=== PATIENT | female | born 1995 | race Caucasian/White ===

== ENCOUNTER 2020-05-11 10:27 | Emergency (ER) | payer OTHER ==
[~2020-05-11] VITALS: Ht 152.4 cm; Wt 56.7 kg
--- NOTE | 2020-05-11 10:35 | NUR ---
Wheelchair assisted to bed 5
--- NOTE | 2020-05-11 10:40 | NUR ---
25 y/o female c/o RLQ pain x1 day. pain started this morning. pt stated pain is 7/10 is a sharp/cramp like pain. Pt took tylenol with no relief. pt c/o n/v, vomited x2. LBM this morning and pt stated it was normal for her. abdomen was tender on palpation. a&o x4, pt laying in bed. NO PMH allergies: dairy, denies medication allergies
[2020-05-11 10:42] VITALS: BP 117/71
--- NOTE | 2020-05-11 11:24 | NUR ---
evaluating pt at bedside
[2020-05-11] MEDS ORDERED: MORPHINE SULFATE 4 MG/ML SYR ONE (11:53)
[2020-05-11] MEDS: MORPHINE SULFATE 4 MG/ML SYR IVP ONE ×2 (11:58→14:31)
[2020-05-11] MEDS: ONDANSETRON 4 MG/2 ML VIAL IVP ONE (12:01)
[2020-05-11] MEDS: SODIUM CHLORIDE FLUSH 10 ML SYR IVF STA (12:05)
[2020-05-11] MEDS: NACL 0.9% 1,000 ML IV ONE (12:06)
[2020-05-11 12:19] LABS: BASOPHILS % (AUTO) 0.5 % (0.0-2.0); HEMATOCRIT 37.8 % (36-48); HEMOGLOBIN 12.7 g/dL (12.0-16.0); LYMPHOCYTES # (AUTO) 0.5 K/uL (2.5-16.5); LYMPHOCYTES % (AUTO) 7.8 % (20.5-51.1); MEAN CORPUSCULAR HEMOGLOBIN 32 pg (27-31); MEAN CORPUSCULAR HGB CONC 34 g/dL (33-37); MEAN CORPUSCULAR VOLUME 94.8 fL (80-94); MONOCYTES # (AUTO) 0.5 K/uL (0.8-1.0); MONOCYTES % (AUTO) 7.7 % (1.7-9.3); NEUTROPHILS # (AUTO) 5.1 K/uL (1.8-7.7); PLATELET COUNT (AUTO) 231 K/uL (140-450); RED BLOOD CELL COUNT(AUTO) 3.98 MIL/uL (4.20-5.40); RED CELL DISTRIBUTION WIDTH 12.4 % (11.6-13.7)
--- NOTE | 2020-05-11 12:31 | NUR ---
Pt ambulated to restroom to provide urine sample
[2020-05-11 12:51] LABS: ANION GAP 19.1 (8-16); CARBON DIOXIDE 20.7 mmol/L (21-32); CREATININE 0.8 mg/dL (0.6-1.3); POTASSIUM 3.8 mmol/L (3.5-5.1)
[2020-05-11 12:55] LABS: ALBUMIN 4.3 g/dL (3.4-5.0); TOTAL BILIRUBIN 0.4 mg/dL (0.0-1.0)
[2020-05-11 13:18] LABS: BILIRUBIN,URINE 1+ (NEGATIVE); BLOOD, URINE 2+ (NEGATIVE); COLOR,URINE YELLOW (YELLOW); LEUKOCYTE ESTERASE ,URINE TRACE (NEGATIVE); NITRITE, URINE NEGATIVE (NEGATIVE); UGLUCOSE NEGATIVE (NEGATIVE)
--- NOTE | 2020-05-11 13:20 | NUR ---
CONSENT SIGNED BY PT AND DR LUEVANO FOR IV CONTRAST FOR CT OF ABD
[2020-05-11 13:23] LABS: APPEARANCE,URINE SLIGHTLY HAZY (CLEAR)
[2020-05-11 13:25] LABS: WBC,URINE 0-5 /HPF (0-5)
--- NOTE | 2020-05-11 13:40 | NUR ---
PT BACK FROM CT, IV FLUIDS HOOKED BACK UP.
--- NOTE | 2020-05-11 14:02 | NUR ---
PT RESTING IN BED WITH EVEN AND UNLABORED RESPIRATIONS. BED IN LOWEST POSITION WITH BRAKES LOCKED.
[2020-05-11] MEDS: KETOROLAC 15 MG/ML VIAL IVP SCH (14:32)
[2020-05-11] MEDS: LACTATED RINGERS 1,000 ML IV SCH ×2 (14:34→14:35)
--- NOTE | 2020-05-11 15:56 | NUR ---
Patient discharged with v/s stable. Written and verbal after care instructions given and explained. Patient alert, oriented and verbalized understanding of instructions. Ambulatory with steady gait. All questions addressed prior to discharge. ID band removed. Patient advised to follow up with PMD. Rx of norco 5mg-325mg q6h prn, ibuprofen 600mg tif po, and zofran ODT 4mg q8h prn given. Patient educated on indication of medication including possible reaction and side effects. Opportunity to ask questions provided and answered.
[2020-05-11 16:25] VITALS: BP 117/76
== END 2020-05-11 15:56 | disposition home or self-care (01) ==
LOC: MED 10:27
DX: N20.0 Calculus of kidney (principal)
CPT/HCPCS: 36415; 74177; 80053; 81001; 81025; 83690; 84702; 85025; 87086; 96361; 96374; 96375; 96376; 99285; J1885; J2270; J2405; J7120; Q9967; J7030